=== PATIENT | female | born 2005 | race Caucasian/White ===

== ENCOUNTER 2024-03-11 11:04 | Outpatient (CLI) | payer MEDICAID | END 2024-03-11 23:59 | disposition home or self-care (01) | LOC: RAD 11:04 | PROVIDERS: ATTEND Nurse Practitioner Family | DX: N92.1 Excessive and frequent menstruation with irregular cycle (principal); R10.2 Pelvic and perineal pain | CPT/HCPCS: 76830; 76856; 93976 ==

== ENCOUNTER 2025-04-27 11:16 | Emergency (ER) | payer MEDICAID ==
[~2025-04-27] VITALS: Ht 172.7 cm; Wt 89.1 kg
[2025-04-27 11:25] VITALS: BP 136/72; PULSE 86; O2SAT 99
--- NOTE | 2025-04-27 12:50 | Physician Documentation ---
History of Present Illness ~ Chief Complaint: Headache Stated Complaint: MIGRAINE Time Seen by MD: 11:47 HPI Patient is seen today with complaints of migrainous headache intractable for four days now. Patient states he has history of migraine headaches and is on chronic migraine medication. She denies any worse headache of her life symptoms. She states she does have additional are and sensitivity to light and sound states that her migraines are usually behind her right eye and this warm has switched now to behind her left eye which is unusual for her. Patient also states she feels like she has been almost passing out but denies any loss of consciousness. She denies any chest pain or shortness of breath or abdominal pain and has no other concern or complaint at this time. She denies any fevers or chills. Medication Reconciliation Allergies: Coded Allergies: No Known Allergies (Unverified , 04/27/25) Review of Systems Constitutional: Denies: chills, fever, weakness Eyes: Denies: pain, blurred vision ENT: Denies: ear pain, nose pain, throat pain, mouth pain Respiratory: Denies: cough, shortness of breath Cardiovascular: Denies: chest pain, palpitations Gastrointestinal: Denies: abdominal pain, nausea, vomiting Genitourinary: Denies: burning, dysuria Female Genitalia: Denies: vaginal discharge, pelvic pain Neurological: Denies: headache, dizziness Musculoskeletal: Denies: pain, swelling Integumentary: Denies: rash, lesions Allergic/Immunologic: Denies: hives, itching Hematologic/Lymphatic: Denies: no symptoms reported Psychiatric: Denies: depression, anxiety Physical Exam Vital Signs: Temperature: 98.5, Source: Oral, Heart Rate: 86, Respiratory Rate: 14, BP: 136/72, Pulse Oximetry: 99, Weight: 89.100 Oxygen Flow Rate: 0 Physical Exam General: Awake and Alert, no acute distress. HEENT: Conjunctiva pink, Sclera clear, Mucus Membranes moist. Neck: Supple without masses and tenderness. Resp: Unlabored. Lungs clear to auscultation bilaterally. Heart: Regular Rate and rhythm, normal S1 and S2 without murmur, rub or gallop. Abdomen: Soft and non tender no organomegaly Extremities: No cyanosis,clubbing or edema. Skin: Warm and Dry. Progress Results/Orders Results/Orders Orders - ZI HERNANDEZ PAC Saline Lock (04/27/25 ) Completed Orders - ZI HERNANDEZ Prochlorperazine Inj (Compazine Inj) (04/27/25 12:45) Diphenhydramine Inj (Benadryl Inj.) (04/27/25 12:45) Acetaminophen 1,000mg/100ml Iv (Ofirmev (04/27/25 12:45) Ketorolac Trometh 30mg/Ml Vial (Toradol (04/27/25 12:45) Normal Saline 1000ml (Sodium Chloride 10 (04/27/25 13:54) Medications Received in ER Medications (Trade) Dose Ordered Sig/Bradley Route PRN Reason Start Time Stop Time Status Last Admin Dose Admin (Compazine inj) 10 mg ONCE STAT IM 04/27/25 12:45 04/27/25 12:57 DC 04/27/25 13:41 10 MG (Benadryl inj.) 50 mg ONCE STAT IV 04/27/25 12:45 04/27/25 12:57 DC 04/27/25 13:30 50 MG (Toradol inj. 30mg/ml) 30 mg ONCE STAT IV 04/27/25 12:45 04/27/25 12:57 DC 04/27/25 13:41 30 MG Acetaminophen 100 ml @ 400 mls/hr ONCE STAT IV 04/27/25 12:45 04/27/25 12:59 DC 04/27/25 13:41 400 MLS/HR Sodium Chloride 1,000 ml @ 1,000 mls/hr ONCE STAT IV 04/27/25 13:54 04/27/25 14:53 DC 04/27/25 14:40 1,000 MLS/HR Vital Signs 04/27/25 04/27/25 11:25 13:41 Temp 98.5 Pulse 86 Resp 14 16 B/P (MAP) 136/72 Pulse Ox 99 O2 Flow Rate 0 Medical Decision Making Findings Patient is seen today with complaints of migrainous headache intractable for four days now. Patient states he has history of migraine headaches and is on chronic migraine medication. She denies any worse headache of her life symptoms. She states she does have additional are and sensitivity to light and sound states that her migraines are usually behind her right eye and this warm has switched now to behind her left eye which is unusual for her. Patient also states she feels like she has been almost passing out but denies any loss of consciousness. She denies any chest pain or shortness of breath or abdominal pain and has no other concern or complaint at this time. She denies any fevers or chills. Decision-making utilized today. Patient was given IV normal saline 1 L, Compazine 10 mg IV, Benadryl 50 mg IV, Toradol 30 mg IV, Tylenol 1000 mg IV. Patient did receive good relief of her symptoms. Patient will follow up with primary care in 2-5 days if no better as needed sooner. Return to ED with any worsening, concerning or changing symptoms. Departure Disposition: HOME / SELF CARE / HOMELESS Impression: Primary Impression: Migraine Qualified Codes: G43.119 - Migraine with aura, intractable, without status migrainosus Condition: Improved Discharge Instructions: Migraine Headache Additional Instructions: shared Decision-making utilized today. Patient was given IV normal saline 1 L, Compazine 10 mg IV, Benadryl 50 mg IV, Toradol 30 mg IV, Tylenol 1000 mg IV. Patient did receive good relief of her symptoms. Patient will follow up with primary care in 2-5 days if no better as needed sooner. Return to ED with any worsening, concerning or changing symptoms. Referrals: NO PRIMARY CARE PROVIDER (PCP) Signature Scribe Signature: No scribe Attestation: No scribe ZI HERNANDEZ PAC Apr 27, 2025 12:50
[2025-04-27] MEDS: diphenhydrAMINE 50 mg/ml inj IV STA (13:30)
[2025-04-27 13:41] VITALS: RESP 16
[2025-04-27] MEDS: ketorolac trometh 30MG/ML vial 30 MG/ML VIAL IV STA (13:41)
[2025-04-27] MEDS: acetaminophen 1,000mg/100ml IV 100 ML IV STA (13:41)
[2025-04-27] MEDS: proCHLORperazine 10 MG/2 ml inj IM STA (13:41)
[2025-04-27] MEDS: normal saline 1000ml 1,000 ML IV STA (14:40)
[2025-04-27 15:33] VITALS: TEMP 98.5
== END 2025-04-27 15:35 | disposition home or self-care (01) ==
LOC: ER 11:16
DX: G43.119 Migraine with aura, intractable, without status migrainosus (principal)
CPT/HCPCS: 96361; 96372; 96374; 96375; 99284; J0131; J0780; J1200; J1885; J7030